=== PATIENT | female | born 1980 | race Hispanic/Latino ===

== ENCOUNTER 2018-03-25 18:03 | Emergency (ER) | payer OTHER ==
[~2018-03-25] VITALS: Ht 160 cm; Wt 122.5 kg
[2018-03-25 20:08] LABS: BILIRUBIN,URINE NEGATIVE (NEGATIVE); CLARITY,URINE CLOUDY (CLEAR); COLOR,URINE YELLOW (YELLOW); KETONES,URINE NEGATIVE (NEGATIVE); LEUKOCYTE ESTERASE ,URINE TRACE (NEGATIVE); NITRITE,URINE NEGATIVE (NEGATIVE); PREGNANCY TEST, URINE NEGATIVE (NEGATIVE); PROTEIN,URINE DIPSTICK NEGATIVE (NEGATIVE); URINE UROBILINOGEN 0.2 mg/dL (0.2 - 1)
[2018-03-25 20:17] LABS: BACTERIA,URINE FEW /HPF; EPITHELIAL CELLS,URINE FEW /LPF; MUCUS,URINE RARE (RARE)
[2018-03-25] MEDS ORDERED: KETOROLAC TROMETHAMINE 30 MG/ML VIAL IV STA (21:26)
[2018-03-25] MEDS ORDERED: SODIUM CHLORIDE 0.9% 1000ML 1,000 ML IV STA (21:26)
[2018-03-25] MEDS ORDERED: ONDANSETRON HCL 4 MG ORAL DISINTEGRATING TAB PO ONE (21:30)
[2018-03-25 21:38] LABS: BASOPHILS % 0.2 % (0.0-1.0); EOSINOPHILS # (AUTO) 0.1 (0.0-0.4); EOSINOPHILS % 1.1 % (0.0-6.0); HEMATOCRIT 33.1 % (34.2-44.1); HEMOGLOBIN 10.1 g/dL (12.0-16.0); LYMPHOCYTES # (AUTO) 2.3 (1.0-3.2); LYMPHOCYTES % 22.4 % (18.0-39.1); MEAN CORPUSCULAR HEMOGLOBIN 22.4 pg (28-32); MEAN CORPUSCULAR HGB CONC 30.5 g/dL (31-35); MEAN CORPUSCULAR VOLUME 73.6 fL (81-99); MONOCYTES # (AUTO) 0.5 (0.2-0.8); MONOCYTES % 4.5 % (4.4-11.3); NEUTROPHILS # (AUTO) 7.5 (2.1-6.9); NEUTROPHILS % 71.5 % (38.7-80.0); PLATELET COUNT 337 x10e3/uL (140-360)
[2018-03-25 21:55] LABS: ALANINE AMINOTRANSFERASE 15 IU/L (0-55); ALBUMIN 3.4 g/dL (3.5-5.0); ALBUMIN/GLOBULIN RATIO 0.8 (0.8-2.0); ALKALINE PHOSPHATASE 100 IU/L (40-150); ANION GAP 11.9 mmol/L (8-16); BLOOD UREA NITROGEN 15 mg/dL (7-26); BUN/CREATININE RATIO 24 (6-25); CALCIUM 9.1 mg/dL (8.4-10.2); CARBON DIOXIDE 25 mmol/L (22-29); CHLORIDE 105 mmol/L (98-107); CREATININE, SERUM 0.63 mg/dL (0.57-1.11); EST GLOMERULAR FILTRATION RATE > 60 ML/MIN (60-); GLUCOSE 98 mg/dL (74-118); POTASSIUM 3.9 mmol/L (3.5-5.1); SODIUM 138 mmol/L (136-145)
--- NOTE | 2018-03-25 22:35 | Diagnostic Imaging Report ---
EXAM: CT ABDOMEN/PELVIS WO DATE: 03/25/2018 9:26 PM INDICATION: Right flank pain COMPARISON: None TECHNIQUE: The abdomen and pelvis were scanned using a multidetector helical scanner. Coronal and sagittal reformations were obtained. Routine protocol performed. IV Contrast: 0 ml Isovue 300/370 FINDINGS: LOWER THORAX: Nonspecific 4 mm subpleural right middle lobe nodule. LIVER/BILIARY: No masses. No ductal dilatation. GALLBLADDER: Surgically absent SPLEEN: Unremarkable PANCREAS: Unremarkable ADRENALS: No nodules KIDNEYS: 3 mm nonobstructing right inferior renal calculus and 2 mm left interpolar calculus. No hydronephrosis. GI TRACT: No wall thickening or evidence of obstruction. Appendix is not seen. VESSELS: Minimal atherosclerotic calcification. PERITONEUM/RETROPERITONEUM: No free air or fluid LYMPH NODES: No lymphadenopathy REPRODUCTIVE ORGANS/BLADDER: Unremarkable noncontrast appearance. SOFT TISSUES: Tiny fat-containing umbilical hernia. BONES: No suspicious bone lesions. IMPRESSION: Nonobstructing nephrolithiasis without evidence of obstructive uropathy or other acute abnormality on noncontrast evaluation. Signed by: Dr Pastora Staples MD on 03/25/2018 10:31 PM
[2018-03-26 00:26] VITALS: BP 157/84
[2018-03-26] MEDS ORDERED: KETOROLAC TROME10 MG PO (00:33)
[2018-03-26] MEDS ORDERED: ZOFRAN ODT4 MG SL (00:33)
[2018-03-26] MEDS ORDERED: TYLENOL WITH C1 EACH PO (00:33)
[2018-03-26] MEDS ORDERED: ceftin PO (00:33)
== END 2018-03-26 00:41 | disposition home or self-care (01) ==
LOC: ER 18:03
DX: N30.91 Cystitis, unspecified with hematuria (principal); N20.0 Calculus of kidney
CPT/HCPCS: 36415; 74176; 80053; 81001; 81025; 85025; 99284; J1885; J7030

== ENCOUNTER 2019-02-07 23:54 | Emergency (ER) | payer OTHER ==
[~2019-02-07] VITALS: Ht 160 cm; Wt 133.8 kg
[~2019-02-07 23:54] MED LIST: KETOROLAC TROME10 MG PO; TYLENOL WITH C1 EACH PO; ZOFRAN ODT4 MG SL; ceftin PO
--- OUTSIDE RECORDS SUMMARY | 2019-02-07 23:57 | XMS REPORT ---
Author Author [facility] Address Unknown Phone Unavailable Care Team Providers Care Evaluator Transfer Students Name Role Phone Franko MAYNARD Unavailable Unavailable Problems This patient has no known problems. Allergies, Adverse Reactions, Alerts This patient has no known allergies or adverse reactions. Medications This patient has no known medications. Results Test Description Test Time Test Comments Text Results Atomic Results Result Comments CT ABDOMEN/PELVIS WO [place] [address] Patient Name: KATHY LANE MR #: [id number] : 1980 Age/Sex: 37/F Req #: [id number] Adm Physician: Ordered by: MAR RUIZ GUSSET EDGER Report #: [id number] Location: ER Room/Bed: Procedure: [id number] CT/CT ABDOMEN/PELVIS WO Exam Date: 03/25/18 Exam Time: 2157 REPORT STATUS: Signed EXAM: CT ABDOMEN/PELVIS WO DATE: 03/25/2018 9:26 PM INDICATION: Right flank pain COMPARISON: None TECHNIQUE: The abdomen and pelvis were scanned using a multidetector helical scanner. Coronal and sagittal reformations were obtained. Routine protocol performed. IV Contrast: 0 ml Isovue 300/370 FINDINGS: LOWER THORAX: Nonspecific 4 mm subpleural right middle lobe nodule. LIVER/BILIARY: No masses. No ductal dilatation. GALLBLADDER: Surgically absent SPLEEN: Unremarkable PANCREAS: Unremarkable ADRENALS: No nodules KIDNEYS: 3 mm nonobstructing right inferior renal calculus and 2 mm left interpolar calculus. No hydronephrosis. GI TRACT: No wall thickening or evidence of obstruction. Appendix is not seen. VESSELS: Minimal atherosclerotic calcification. PERITONEUM/RETROPERITONEUM: No free air or fluid LYMPH NODES: No lymphadenopathy REPRODUCTIVE ORGANS/BLADDER: Unremarkable noncontrast appearance. SOFT TISSUES: Tiny fat-containing umbilical hernia. BONES: No suspicious bone lesions. IMPRESSION: Nonobstructing nephrolithiasis without evidence of obstructive uropathy or other acute abnormality on noncontrast evaluation. Signed by: Dr Zeina Staples MD on 03/25/2018 10:31 PM Dictated By: ZEINA STAPLES MD 30 Transcribed By: DAVIDA on 03/25/182230 COPY TO: MAR RUIZ NP
== END 2019-02-08 01:30 | disposition home or self-care (01) ==
LOC: FSED 23:54
DX: M79.662 Pain in left lower leg (principal); S80.812A Abrasion, left lower leg, initial encounter; I83.892 Varicose veins of left lower extremity with other complications
CPT/HCPCS: 99283